=== PATIENT | female | born 1980 | race American Indian/Alaskan Native ===

== ENCOUNTER 2019-12-30 00:53 | Emergency (ER) | payer BC, OTHER ==
[2019-12-30] MEDS ORDERED: Ondansetron 4 MG/2 ML SDV IVPUSH ONE (01:18)
[2019-12-30] MEDS ORDERED: Acetaminophen/Codeine 120-12 MG/5 ML Soln 5 ML UD Cup PO ONE (01:18)
--- NOTE | 2019-12-30 01:26 | EDM.PDOC ---
ED HPI GENERAL MEDICAL PROBLEM - General Chief Complaint: Respiratory Problem Stated Complaint: [facility] Time Seen by Provider: 12/30/19 01:03 Source of Information: Reports: Patient History Limitations: Reports: No Limitations - History of Present Illness INITIAL COMMENTS - FREE TEXT/NARRATIVE: Is a 39-year-old female. She had onset of Covid type symptoms on Tuesday the . Then she had a Covid test done on Tuesday the the came back positive. Since then she has been having cough and over the last couple of days fever and chills and now she has some tightness and soreness in her chest. She complains of increasing shortness of breath yesterday. She also complains of nausea and mild vomiting at times. She also has diarrhea. She complains of a sore throat and myalgias. She lost her taste or smell about 2 days ago. She comes to the ER because of her chest tightness and her shortness of breath and her constant coughing and nausea. 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, Other (see below) Other Treatments GLAZIER ARTIST: Zofran 4 mg, NS 1000 cc Back Pain Score (Numeric/FACES): 5 - Related Data Allergies Allergy/AdvReac Type Severity Reaction Status Date / Time morphine Allergy Nausea Verified 12/30/19 00:58 Home Meds: Home Meds Acetaminophen [Tylenol Extra Strength] 1,000 mg PO ONCALL PRN 12/30/19 [History] Codeine/guaiFENesin [Robitussin AC] 10 ml PO Q6H PRN #1 bottle 12/30/19 [Rx] Ondansetron [Zofran] 4 mg PO Q6H PRN #15 tab 12/30/19 [Rx] dexAMETHasone [Decadron] 8 mg PO BID #8 tablet 12/30/19 [Rx] Past Medical History [employer] History: Reports: Musculoskeletal History: Reports: Fracture - Past Surgical History Female Surgical History: Reports: Section, Hysterectomy Musculoskeletal Surgical History: Reports: ORIF Social & Family History - Tobacco Use Tobacco Use Status *Q: Never Tobacco User - Recreational Drug Use Recreational Drug Use: No ED ROS GENERAL - Review of Systems Review Of Systems: See Below Constitutional: Reports: Fatigue. Denies: Fever, Chills HEENT: Reports: Sinus Problem, Other (Sore throat) Respiratory: Reports: Shortness of Breath, Cough. Denies: Sputum Cardiovascular: Reports: Chest Pain Endocrine: Reports: No Symptoms GI/Abdominal: Reports: Diarrhea, Nausea, Vomiting : Reports: No Symptoms Musculoskeletal: Reports: Other (Myalgias) Skin: Reports: No Symptoms Neurological: Reports: No Symptoms Psychiatric: Reports: No Symptoms Hematologic/Lymphatic: Reports: No Symptoms ED EXAM, GENERAL - Physical Exam Exam: See Below Exam Limited By: No Limitations General Appearance: Alert, WD/WN, No Apparent Distress Eye Exam: Bilateral Eye: Normal Inspection Ears: Normal External Exam Nose: Normal Inspection, Other (Minimal nasal congestion) Throat/Mouth: Normal Inspection, Normal Lips, Normal Voice, No Airway Compromise , Other (Brains are slightly tacky, oropharynx is mildly inflamed but no exudates) Head: Normocephalic Neck: Normal Inspection, Supple Respiratory/Chest: No Respiratory Distress, Lungs Clear, Normal Breath Sounds, Other (Pulse ox is 91 to 92% on room air. She is tender on palpation of her chest. There are no rales wheezes or rhonchi noted and she is not having any retractions or using licensed embalmer muscles.) Cardiovascular: Regular Rate, Rhythm, No Murmur GI/Abdominal: Soft, Non-Tender, Other (Bowel sounds are decreased) Back Exam: Normal Inspection, Full Range of Motion Extremities: Normal Inspection, Normal Range of Motion, Non-Tender Neurological: Alert, Oriented Psychiatric: Normal Affect, Normal Mood Skin Exam: Warm, Dry #1 Interpretation EKG Date: 12/30/19 Time: 01:00 EKG Interpretation Comments: EKG shows a normal sinus rhythm rate of 89. There is no acute ST or T wave changes and there is no acute ischemia noted. Course - Vital Signs Last Recorded V/S: Last Vital Signs Temp 98.0 F 12/30/19 00:59 Pulse 86 12/30/19 00:59 Resp 29 H 12/30/19 00:59 BP 137/87 12/30/19 00:59 Pulse Ox 93 L 12/30/19 00:59 - Orders/Labs/Meds Orders: Active Orders 24 hr Category Date Time Status CXR [Chest 1V Frontal] [CR] Stat Exams 12/30/19 01:17 Taken Labs: Laboratory Tests 12/30/19 12/30/19 12/30/19 Range/Units 01:25 01:25 01:25 WBC 6.17 (3.98-10.04) K/mm3 RBC 4.82 (3.98-5.22) M/mm3 Hgb 12.7 (11.2-15.7) gm/dl Hct 38.4 (34.1-44.9) % MCV 79.7 (79.4-94.8) fl MCH 26.3 (25.6-32.2) pg MCHC 33.1 (32.2-35.5) g/dl RDW Std Deviation 38.4 (36.4-46.3) fL Plt Count 227 (182-369) K/mm3 MPV 9.0 L (9.4-12.3) fl Neut % (Auto) 69.8 (34.0-71.1) % Lymph % (Auto) 22.0 (19.3-51.7) % Griggs % (Auto) 7.6 (4.7-12.5) % Eos % (Auto) 0.2 L (0.7-5.8) Baso % (Auto) 0.2 (0.1-1.2) % Neut # (Auto) 4.31 (1.56-6.13) K/mm3 Lymph # (Auto) 1.36 (1.18-3.74) K/mm3 Griggs # (Auto) 0.47 H (0.24-0.36) K/mm3 Eos # (Auto) 0.01 L (0.04-0.36) K/mm3 Baso # (Auto) 0.01 (0.01-0.08) K/mm3 Fibrinogen (187-446) mg/dL Sodium 136 (136-145) mEq/L Potassium 3.0 L (3.5-5.1) mEq/L Chloride 103 (98-107) mEq/L Carbon Dioxide 23 (21-32) mEq/L Anion Gap 13.0 (5-15) BUN 7 (7-18) mg/dL Creatinine 0.6 (0.55-1.02) mg/dL Est Cr Clr Drug Dosing 107.63 mL/min Estimated GFR (MDRD) > 60 (>60) mL/min BUN/Creatinine Ratio 11.7 L (14-18) Glucose 110 H (74-106) mg/dL Calcium 7.3 L (8.5-10.1) mg/dL Magnesium 1.7 L (1.8-2.4) mg/dl Ferritin 739 H (8-252) ng/ml Total Bilirubin 0.3 (0.2-1.0) mg/dL AST 81 H (15-37) U/L ALT 117 H (14-59) U/L Alkaline Phosphatase 82 (46-116) U/L Lactate Dehydrogenase 302 H (81-234) U/L Troponin I < 0.017 (0.00-0.056) ng/mL C-Reactive Protein 2.7 H* (<1.0) mg/dL Total Protein 6.5 (6.4-8.2) g/dl Albumin 2.8 L (3.4-5.0) g/dl Globulin 3.7 gm/dL Albumin/Globulin Ratio 0.8 L (1-2) 12/30/19 Range/Units 01:25 WBC (3.98-10.04) K/mm3 RBC (3.98-5.22) M/mm3 Hgb (11.2-15.7) gm/dl Hct (34.1-44.9) % MCV (79.4-94.8) fl MCH (25.6-32.2) pg MCHC (32.2-35.5) g/dl RDW Std Deviation (36.4-46.3) fL Plt Count (182-369) K/mm3 MPV (9.4-12.3) fl Neut % (Auto) (34.0-71.1) % Lymph % (Auto) (19.3-51.7) % Griggs % (Auto) (4.7-12.5) % Eos % (Auto) (0.7-5.8) Baso % (Auto) (0.1-1.2) % Neut # (Auto) (1.56-6.13) K/mm3 Lymph # (Auto) (1.18-3.74) K/mm3 Griggs # (Auto) (0.24-0.36) K/mm3 Eos # (Auto) (0.04-0.36) K/mm3 Baso # (Auto) (0.01-0.08) K/mm3 Fibrinogen 426 (187-446) mg/dL Sodium (136-145) mEq/L Potassium (3.5-5.1) mEq/L Chloride (98-107) mEq/L Carbon Dioxide (21-32) mEq/L Anion Gap (5-15) BUN (7-18) mg/dL Creatinine (0.55-1.02) mg/dL Est Cr Clr Drug Dosing mL/min Estimated GFR (MDRD) (>60) mL/min BUN/Creatinine Ratio (14-18) Glucose (74-106) mg/dL Calcium (8.5-10.1) mg/dL Magnesium (1.8-2.4) mg/dl Ferritin (8-252) ng/ml Total Bilirubin (0.2-1.0) mg/dL AST (15-37) U/L ALT (14-59) U/L Alkaline Phosphatase (46-116) U/L Lactate Dehydrogenase (81-234) U/L Troponin I (0.00-0.056) ng/mL C-Reactive Protein (<1.0) mg/dL Total Protein (6.4-8.2) g/dl Albumin (3.4-5.0) g/dl Globulin gm/dL Albumin/Globulin Ratio (1-2) Meds: Medications Discontinued Medications Generic Name Dose Route Start Last Admin Trade Name Freq PRN Reason Stop Dose Admin Acetaminophen/Codeine Phosphate 10 ml 12/30/19 01:18 12/30/19 01:29 Tylenol/Codeine 120-12 Mg/5 Ml PO 12/30/19 01:19 10 ml ONETIME ONE Administration Lactated Ringer's 1,000 mls @ 1,000 mls/hr 12/30/19 01:30 12/30/19 01:29 Ringers, Lactated IV 1,000 mls/hr ASDIRECTED CIERRA Administration Lactated Ringer's 1,000 mls @ 1,000 mls/hr 12/30/19 02:45 12/30/19 02:40 Ringers, Lactated IV 1,000 mls/hr ASDIRECTED CIERRA Administration Methylprednisolone Sodium Succinate 125 mg 12/30/19 02:34 12/30/19 02:40 Solu-Medrol IVPUSH 12/30/19 02:35 125 mg ONETIME ONE Administration Ondansetron HCl 4 mg 12/30/19 01:18 12/30/19 01:29 Zofran IVPUSH 12/30/19 01:19 4 mg ONETIME ONE Administration - Radiology Interpretation Free Text/Narrative:: X-ray does show some patchy groundglass opacification in the right and left lower lungs as well as the left lingula. This would coincide with her COVID-19 positive test. - Re-Assessments/Exams Free Text/Narrative Re-Assessment/Exam: 12/30/19 02:35 Patient is coughing less now and she is feeling somewhat better. We will continue with another liter of fluids. 12/30/19 02:36 Her blood work shows a fibrinogen is 426 and normal a potassium of 3.0 and slightly low she has some mildly elevated liver enzymes her troponin was normal and her C-reactive protein was 2.7 and slightly elevated. This coincides with her diagnosis of Covid though it does not appear to be a severe case at this time. Departure - Departure Time of Disposition: 05:35 Disposition: Home, Self-Care 01 Condition: Fair Clinical Impression: Lab test positive for detection of COVID-19 virus, Pneumonia due to COVID-19 virus, Nausea, Cough, Shortness of breath Diarrhea Qualifiers: Diarrhea type: unspecified type Qualified Code(s): R19.7 - Diarrhea, unspecified - Discharge Information *PRESCRIPTION DRUG MONITORING PROGRAM REVIEWED*: Not Applicable *COPY OF PRESCRIPTION DRUG MONITORING REPORT IN PATIENT JESUS: Not Applicable Prescriptions: dexAMETHasone [Decadron] 8 mg PO BID #8 tablet Codeine/guaiFENesin [Robitussin AC] 10 ml PO Q6H PRN #1 bottle PRN Reason: Cough Ondansetron [Zofran] 4 mg PO Q6H PRN #15 tab PRN Reason: Nausea Instructions: COVID-19 Frequently Asked Questions, Nausea and Vomiting, Adult Referrals: PCP,None [Primary Care Provider] - Forms: ED Department Discharge Additional Instructions: You were seen in the ER for Covid type symptoms. Your pulse ox has been running anywhere from 91-94 on room air. This is good for Covid patients though it might take you feel short of breath at times especially with exertion, you did receive fluids as well as some steroids in the ER. You will receive prescriptions for some dexamethasone that you take twice a day for 4 days that helps with the inflammation in your lungs from the Covid, there is also a prescription for some Zofran for the nausea as well as Robitussin-AC to help with your cough, you did receive fluids in the ER, you need to follow-up with your family doctor once you are out of quarantine so they can recheck you and make sure you continue to do better, return to the ER if needed Sepsis Event Note (ED) - Evaluation Sepsis Screening Result: No Definite Risk - Focused Exam Vital Signs: Vital Signs Temp Pulse Resp BP Pulse Ox 12/30/19 00:59 98.0 F 86 29 H 137/87 93 L - My Orders Last 24 Hours: My Active Orders 12/30/19 01:17 CXR [Chest 1V Frontal] [CR] Stat - Assessment/Plan Last 24 Hours: My Active Orders 12/30/19 01:17 CXR [Chest 1V Frontal] [CR] Stat
[2019-12-30] MEDS ORDERED: Lactated Ringers 1,000 ML IV SCH ×2 (01:30→02:45)
[2019-12-30] MEDS ORDERED: methylPREDNISolone Sodium Succinate 125 MG/2 ML SDV IVPUSH ONE (02:34)
--- NOTE | 2019-12-31 13:00 | CR ---
PROCEDURE INFORMATION: Exam: XR Chest, 1 View Exam date and time: 12/30/2019 1:28 AM Age: 39 years old Clinical indication: Abnormal findings; Other: Covid positive; Cough and shortness of breath; Patient HX: Symptoms started 12/21/2019 worsening, covid positive, SOB with cough TECHNIQUE: Imaging protocol: XR of the chest Views: 1 view. COMPARISON: No relevant prior studies available. FINDINGS: Lungs: Patchy ground-glass opacification and more focal alveolar airspace disease in the right and left lower lobes and the left lingula. Pleural space: No pleural effusion. No pneumothorax. Heart/Mediastinum: The cardiac silhouette and mediastinal contours are unremarkable. Bones/joints: Unremarkable for age. IMPRESSION: Patchy ground-glass opacification and more focal alveolar airspace disease in the right and left lower lobes and the left lingula. These findings are commonly reported imaging features of COVID-19 pneumonia, the diagnosis also includes influenza pneumonia, organizing pneumonia, drug toxicity, and connective tissue disease. Recommend clinical correlation. Recommend followup chest imaging in 4-6 weeks to insure resolution of these findings. Thank you for allowing us to participate in the care of your patient. Dictated and Authenticated by: Kayley Min MD 12/30/2019 3:11 AM Central Time ([place] & [place]) JENY
== END 2019-12-30 05:57 | disposition home or self-care (01) ==
LOC: JD.ED 00:53
DX: U07.1 COVID-19 (principal); J12.89 Other viral pneumonia; Z88.5 Allergy status to narcotic agent
CPT/HCPCS: 36415; 71045; 80053; 82728; 83615; 83735; 84484; 85025; 85384; 86140; 93005; 96374; 96375; 99285; J2405; J2930; J7120; 93010; 99284